=== PATIENT | female | born 1970 | race Caucasian/White ===

== ENCOUNTER 2025-01-25 14:25 | Emergency (ER) | payer MEDICARE, OTHER ==
--- NOTE | 2025-01-25 15:31 | ED ---
General Adult HPI - General Chief complaint: Dental/Oral Stated complaint: Jaw pain Time Seen by Provider: 01/25/25 14:39 Source: patient, RN notes reviewed Mode of arrival: ambulatory Limitations: no limitations - History of Present Illness Initial comments: 54-year-old female presenting to the emergency department via EMS from [facility] [address] for concerns of jaw pain. Patient states that she has been having left lower jaw pain over the past about 10 days. Patient was originally evaluated in urgent care where she was given Toradol for pain relief and antibiotics. Patient followed up with dentist afterwards where they instructed her to continue antibiotics and that the swelling needed to subside were further able to further evaluate the infection however she states that they ruled out infection of the jawbone. Patient is presenting for further evaluation as she states that she is still having pain. Endorses chills with no reported fevers. Denies difficulty breathing or swallowing. Allergy to penicillin. Has been taking clindamycin. - Related Data Previous Rx's Medication Instructions Recorded Cephalexin [Keflex] 500 mg PO Q6HR #40 cap 01/25/25 Ibuprofen [Motrin] 800 mg PO Q6HR #30 tab 01/25/25 metroNIDAZOLE [Flagyl] 500 mg PO TID #30 tab 01/25/25 Allergies Allergy/AdvReac Type Severity Reaction Status Date / Time Penicillins Allergy Anaphylaxis Verified 01/25/25 14:30 Review of Systems ROS Statement: Those systems with pertinent positive or pertinent negative responses have been documented in the HPI. ROS Other: All systems not noted in ROS Statement are negative. Past Medical History Past Medical History: Hyperlipidemia History of Any Multi-Drug Resistant Organisms: None Reported Past Surgical History: Appendectomy, Section, Cholecystectomy Past Psychological History: ADD/ADHD, Anxiety, Depression, PTSD Smoking Status: Current every day smoker Past Alcohol Use History: Abuse, Daily Past Drug Use History: None Reported General Exam Limitations: no limitations Expanded Teeth exam: Present: dental caries, dental tenderness #, other (dental abscess with drainag- purulent) Neck exam: Present: normal inspection. Absent: tenderness, meningismus, lymphadenopathy Respiratory exam: Present: normal lung sounds bilaterally. Absent: respiratory distress, wheezes, rales, rhonchi, stridor Cardiovascular Exam: Present: regular rate, normal rhythm, normal heart sounds. Absent: systolic murmur, diastolic murmur, rubs, gallop, clicks GI/Abdominal exam: Present: soft, normal bowel sounds. Absent: distended, tenderness, guarding, rebound, rigid Extremities exam: Present: normal inspection, full ROM, normal capillary refill. Absent: tenderness, pedal edema, joint swelling, calf tenderness Course Vital Signs 01/25/25 14:26 Temperature 98.5 F Pulse Rate 79 Respiratory 16 Rate Blood Pressure 128/89 O2 Sat by Pulse 94 L Oximetry Medical Decision Making - Medical Decision Making Was pt. sent in by a medical professional or institution (, [facility], [employer], urgent care, hospital, or longterm...) When possible be specific @ -No Did you speak to anyone other than the patient for history (EMS, parent, family, police, friend...)? What history was obtained from this source @ -No Did you review nursing and triage notes (agree or disagree)? Why? @ -I reviewed and agree with nursing and triage notes Were old charts reviewed (outside hosp., previous admission, EMS record, old EKG, old radiological studies, urgent care reports/EKG's, longterm records)? Report findings @ -No old charts were reviewed Differential Diagnosis (chest pain, altered mental status, abdominal pain women, abdominal pain men, vaginal bleeding, weakness, fever, dyspnea, syncope, headache, dizziness, GI bleed, back pain, seizure, CVA, palpatations, mental health, musculoskeletal)? @ -Dental abscess, dental caries, pulpitis, osteomyelitis, Johnny's angina, this list is not all inclusive EKG interpreted by me (3pts min.). @ -None X-rays interpreted by me (1pt min.). @ -None done CT interpreted by me (1pt min.). @ -None done U/S interpreted by me (1pt. min.). @ -None done What testing was considered but not performed or refused? (CT, X-rays, U/S, labs)? Why? @ -None What meds were considered but not given or refused? Why? @ -None Did you discuss the management of the patient with other professionals (professionals i.e. [facility] Macedo, [employer], lab, RT, psych nurse, social media content manager, adobe layer, teacher, agricultural technical officer, welfare case worker)? Give summary @ -No Was smoking cessation discussed for >3mins.? @ -No Was critical care preformed (if so, how long)? @ -No Were there social determinants of health that impacted care today? How? (Homelessness, low income, unemployed, alcoholism, drug addiction, transportation, low edu. Level, literacy, decrease access to med. care, shelter, rehab)? @ -No Was there de-escalation of care discussed even if they declined (Discuss DNR or withdrawal of care, Hospice)? DNR status @ -No What co-morbidities impacted this encounter? (DM, HTN, Smoking, COPD, CAD, Cancer, CVA, ARF, Chemo, Hep., AIDS, mental health diagnosis, sleep apnea, morbid obesity)? @ -None Was patient admitted / discharged? Hospital course, mention meds given and route, prescriptions, significant lab abnormalities, going to OR and other perti nent info. @ Discharge. 54-year-old female presenting for complaints of jaw pain. There is a noted active area of purulent drainage from the left lower drawl that is tender to palpation. Vitals are stable. Area is aspirated with a 25-gauge needle with release of purulent material and blood. Patient is provided with Flagyl and Keflex for antibiotic coverage different than clindamycin as patient does have a penicillin allergy. She is also provided with Toradol for pain relief and outpatient prescription for Motrin. Urged patient that it is extremely important to follow-up with dentist for ultimate treatment. She has verbalized understanding. Case discussed with my attending Dr. Prado. Undiagnosed new problem with uncertain prognosis? @ -No Drug Therapy requiring intensive monitoring for toxicity (Heparin, Nitro, Insulin, Cardizem)? @ -No Were any procedures done? @ -No Diagnosis/symptom? @ -Dental infection with abscess Acute, or Chronic, or Acute on Chronic? @ -Acute Uncomplicated (without systemic symptoms) or Complicated (systemic symptoms)? @ -Uncomplicated Side effects of treatment? @ -No Exacerbation, Progression, or Severe Exacerbation? @ -No Poses a threat to life or bodily function? How? (Chest pain, USA, CT, pneumonia, PE, COPD, DKA, ARF, appy, cholecystitis, CVA, Diverticulitis, Homicidal, Suicidal, threat to staff... and all critical care pts) @ -No Disposition Clinical Impression: Dental abscess Disposition: HOME SELF-CARE Condition: Stable Instructions (If sedation given, give patient instructions): Dental Abscess (ED) Additional Instructions: Please return to the Emergency Department if symptoms worsen or any other concerns. Please complete both course of both antibiotics as prescribed. Is pertinent that you follow-up with dentist for further evaluation. Continue to take Tylenol and/or Motrin as needed for pain relief. Prescriptions: metroNIDAZOLE [Flagyl] 500 mg PO TID #30 tab Cephalexin [Keflex] 500 mg PO Q6HR #40 cap Ibuprofen [Motrin] 800 mg PO Q6HR #30 tab Is patient prescribed a controlled substance at d/c from ED?: No Referrals: None,Stated [Primary Care Provider] - 1-2 days Time of Disposition: 15:37
[2025-01-25] MEDS: KETOROLAC 15 MG/ML 1 ML VIAL IM STA (15:37)
[2025-01-25] MEDS: metroNIDAZOLE 500 MG TAB PO STA (16:06)
[2025-01-25] MEDS: CEPHALEXIN 500 MG CAP PO STA (16:06)
[2025-01-25 16:29] VITALS: BP 146/89; PULSE 86; RESP 18; TEMP 98.4
== END 2025-01-25 16:29 | disposition home or self-care (01) ==
LOC: EC 14:25
DX: K04.7 Periapical abscess without sinus (principal); F17.200 Nicotine dependence, unspecified, uncomplicated; Z88.0 Allergy status to penicillin
CPT/HCPCS: 96372 ×2; 99283 ×2; 41800; J1885